=== PATIENT | female | born 2000 | race African-American/Black ===

== ENCOUNTER 2022-06-29 21:57 | Observation (INO) | payer MEDICAID ==
[~2022-06-29] VITALS: Ht 167.6 cm; Wt 71.2 kg
[2022-06-29] MEDS ORDERED: PREN-176 PO (22:38)
[2022-06-29 23:34] LABS: CLARITY URINE CLEAR (CLEAR); COLOR URINE YELLOW (YELLOW); KETONES URINE NEGATIVE (NEGATIVE); LEUKOCYTE ESTERASE URINE NEGATIVE (NEGATIVE); NITRITE URINE NEGATIVE (NEGATIVE); OCCULT BLOOD URINE NEGATIVE (NEGATIVE); PH URINE 6.5 (4.5-8.0); PROTEIN URINE NEGATIVE (NEGATIVE); SPECIFIC GRAVITY URINE 1.011 (1.005-1.030); UROBILINOGEN URINE 0.2 E.U./dL (0.2-1.0)
== END 2022-06-30 00:10 | disposition home or self-care (01) ==
LOC: 8 EST LDRP 21:57
PROVIDERS: ADMIT Specialist; ATTEND Specialist
DX: O26.893 Other specified pregnancy related conditions, third trimester (principal); R10.30 Lower abdominal pain, unspecified; O62.9 Abnormality of forces of labor, unspecified; Z3A.39 39 weeks gestation of pregnancy
CPT/HCPCS: 59025; 81003; G0378; 99281